=== PATIENT | female | born 1955 | race Caucasian/White ===

== ENCOUNTER 2023-12-31 07:01 | Day surgery (SDC) | payer MEDICARE, BC ==
[2023-12-31] MEDS ORDERED: Propofol 200 MG/20 ML SDV ONE (07:04)
[2023-12-31] MEDS ORDERED: Midazolam 1 MG/ML 2 ML SDV ONE (07:04)
[2023-12-31] MEDS ORDERED: fentaNYL 50 MCG/ML SDV ONE (07:04)
[2023-12-31] MEDS: Sodium Chloride 0.9% 1,000 ML IV SCH (07:34)
== END 2023-12-31 10:02 | disposition home or self-care (01) ==
LOC: JP.SDS 07:01
PROVIDERS: ATTEND Surgery
DX: Z12.11 Encounter for screening for malignant neoplasm of colon (principal); K63.5 Polyp of colon; K57.30 Diverticulosis of large intestine without perforation or abscess without bleeding
CPT/HCPCS: 45380; 88305; J2250; J2704; J3010; J7030; 00811-QZ

== ENCOUNTER 2024-04-16 17:48 | Emergency (ER) | payer MEDICARE, BC ==
[2024-04-16] MEDS: Ketorolac 30 MG/ML SDV IM ONE (19:33)
[2024-04-16] MEDS: Acetaminophen 325 MG Tab PO ONE (19:34)
== END 2024-04-16 21:28 | disposition home or self-care (01) ==
LOC: JP.ED 17:48
DX: S52.572A Other intraarticular fracture of lower end of left radius, initial encounter for closed fracture (principal); E78.00 Pure hypercholesterolemia, unspecified; Z79.899 Other long term (current) drug therapy; W18.30XA Fall on same level, unspecified, initial encounter; Y92.096 Garden or yard of other non-institutional residence as the place of occurrence of the external cause
CPT/HCPCS: 29125; 73030; 73110; 73130; 96372; 99283; A9270; J1885

== ENCOUNTER 2025-06-28 07:49 | Day surgery (SDC) | payer MEDICARE, BC ==
[2025-06-28] MEDS ORDERED: Ondansetron 4 MG/2 ML SDV ONE (08:11)
[2025-06-28] MEDS ORDERED: Dexamethasone 4 MG/ML SDV ONE (08:11)
[2025-06-28] MEDS ORDERED: fentaNYL 100 MCG/2 ML SDV ONE ×2 (08:11→09:52)
[2025-06-28] MEDS ORDERED: Propofol 200 MG/20 ML SDV ONE (08:11)
[2025-06-28 08:12] LABS: PLATELET COUNT,PLT 243.0 K/uL (130-375); RED BLOOD CELL COUNT 4.72 M/uL (3.77-5.24); WHITE BLOOD CELL COUNT,WBC 6.5 K/uL (3.2-11.0)
[2025-06-28] MEDS ORDERED: Midazolam 1 MG/ML 2 ML SDV ONE (08:12)
[2025-06-28 08:31] LABS: BLOOD UREA NITROGEN,BUN 15.0 mg/dL (7-18); CARBON DIOXIDE,CO2 28.0 mmol/L (21-32); CHLORIDE,CL 106.0 mmol/L (100-108); CREATININE 0.8 mg/dL (0.6-1.0); EST CRCL DRUG DOSING (CG) 63.88 mL/min; ESTIMATED GFR 81.0 mL/min (>60); GLUCOSE RANDOM 98.0 mg/dL (74-106); POTASSIUM,K 3.8 mmol/L (3.6-5.2); SODIUM,NA 144.0 mmol/L (140-148)
[2025-06-28] MEDS: Lactated Ringers 1,000 ML IV SCH (08:33)
[2025-06-28] MEDS: Nozin Nasal Sanitizer NASBOTH ONE (08:37)
[2025-06-28] MEDS ORDERED: Ketorolac 30 MG/ML SDV ONE (09:51)
[2025-06-28] MEDS ORDERED: Acetaminophen/HYDROcodone 325-5 MG Tab PO ONE (12:00)
== END 2025-06-28 11:42 | disposition home or self-care (01) ==
LOC: JP.SDS 07:49
PROVIDERS: ATTEND Specialist
DX: M23.242 Derangement of anterior horn of lateral meniscus due to old tear or injury, left knee (principal); M23.222 Derangement of posterior horn of medial meniscus due to old tear or injury, left knee
CPT/HCPCS: 29881; 36415; 80048; 85027; 93005; 93010; A9270; J0690; J1100; J2250; J2405; J2704; J3010; J7120; J0665; J1885